=== PATIENT | male | born 1980 | race Caucasian/White ===

== ENCOUNTER 2018-10-03 12:30 | Outpatient (CLI) | payer OTHER | END 2018-10-03 12:37 | disposition home or self-care (01) | LOC: RAD 12:30 | DX: M77.41 Metatarsalgia, right foot (principal); M54.2 Cervicalgia ==

== ENCOUNTER 2018-10-23 08:47 | Outpatient (CLI) | payer OTHER | END 2018-10-23 08:50 | disposition home or self-care (01) | LOC: SONOGRAMA 08:47 | DX: E03.8 Other specified hypothyroidism (principal) ==

== ENCOUNTER 2024-06-07 09:51 | Emergency (ER) | payer OTHER ==
[~2024-06-07] VITALS: Ht 165.1 cm; Wt 56.7 kg
[2024-06-07] MEDS ORDERED: SYNTHROID50 MCG PO (10:22)
[2024-06-07] MEDS ORDERED: KETOROLAC TROMETHAMINE 30 MG VIAL IM ONE (11:15)
== END 2024-06-07 13:23 | disposition home or self-care (01) ==
LOC: ER 09:52
DX: S99.822A Other specified injuries of left foot, initial encounter (principal); X58.XXXA Exposure to other specified factors, initial encounter; Y93.89 Activity, other specified; Y92.89 Other specified places as the place of occurrence of the external cause; Y99.8 Other external cause status; E03.8 Other specified hypothyroidism